=== PATIENT | male | born 1960 | race Caucasian/White ===

== ENCOUNTER 2018-04-14 14:28 | Emergency (ER) | payer OTHER ==
[~2018-04-14] VITALS: Ht 177.8 cm; Wt 113.4 kg
[~2018-04-14 14:28] MED LIST: AMOCLA875 PO
[2018-04-14] MEDS ORDERED: BP MED PO (14:49)
== END 2018-04-14 17:44 | disposition home or self-care (01) ==
LOC: ER 14:28
DX: S01.01XA Laceration without foreign body of scalp, initial encounter (principal); M25.511 Pain in right shoulder; M25.512 Pain in left shoulder; Z23 Encounter for immunization; I10 Essential (primary) hypertension; Z87.891 Personal history of nicotine dependence; Y04.2XXA Assault by strike against or bumped into by another person, initial encounter
CPT/HCPCS: 12001; 12053; 70450; 73030; 90471; 90714; 96372; 99284-25; J1885